=== PATIENT | male | born 1940 | race Caucasian/White ===

== ENCOUNTER → 2018-11-16 11:05 | Outpatient (CLI) | payer MEDICARE, OTHER, SELFPAY ==
--- NOTE | 2018-11-16 | DI.CT.S_ITS ---
PROCEDURE: CT ABDOMEN PELVIS WO/W CON INDICATIONS: BLADDER MASS TECHNIQUE: After the administration of oral contrast, 5 mm thick sections acquired from the diaphragms to the iliac crests. After the administration of intravenous contrast, 5 mm thick sections acquired from the diaphragms to the symphysis. 5 mm thick coronal and sagittal reformats were acquired. For radiation dose reduction, the following was used: automated exposure control, adjustment of mA and/or kV according to patient size. COMPARISON: None. FINDINGS: Image quality: Excellent. ABDOMEN: Lung bases: Lung bases are clear. Heart size is normal. Solid organs: Liver is normal in size and enhancement. Gallbladder appears normal. Biliary system is non-dilated. Pancreas enhances normally. Spleen is normal in size and enhancement. No adrenal nodules. Both kidneys are normal in size. No hydronephrosis or nephrolithiasis. Bowel and peritoneum: Stomach, small and large bowel loops are normal in caliber and wall thickness. No free fluid or air. Nodes and vessels: No retroperitoneal or mesenteric adenopathy by size criteria. Aorta and inferior vena are normal in caliber. Miscellaneous: No ventral hernias. PELVIS: Genitourinary: Bladder wall thickness is normal. 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 A definite polypoid or sessile mass within the bladder lumen is not identified but there is very slight asymmetric thickness to the left lateral bladder wall anterior to the left ureteral insertion (faintly seen on series 2 image 75 and delayed postcontrast series 3 image 185). Miscellaneous: No inguinal hernias or adenopathy. Bones: No suspicious bony lesions. No vertebral body compression fractures. IMPRESSION: 1. A definite bladder mucosal mass is not identified but as discussed above there is slight asymmetric thickening of the left lateral bladder wall anterior to the left ureteral insertion into the bladder. Please correlate clinically for whether this represents the area of concern reported to have been detected during cystoscopy. 2. A penile prosthesis is present with a anterior low left pelvic body wall positioning of the control device which impinges on the left bladder margin anteriorly, and distorts the bladder margin at that site. This does not represent an area of mucosal abnormality but if during cystoscopy extrinsic mass effect was clinically suspected this is a likely etiology and no additional external mass within the pelvis is found. 3. The urinary tract appears free of obstructive calculus. Several small arterial calcifications are present at the renal arteries. No acute disease over the abdomen or pelvis is found. Dictated by: Bj Ulloa M.D. on 11/16/2018 at 14:53 Approved by: Bj Ulloa M.D. on 11/16/2018 at 15:01
== END ==
PROVIDERS: Family Provider Internal Medicine; PCP Internal Medicine; Visit Provider Urology
DX: N32.89 Other specified disorders of bladder (principal)
CPT/HCPCS: 74178; Q9967

== ENCOUNTER → 2019-02-28 06:41 | Outpatient (CLI) | payer MEDICARE, OTHER, SELFPAY ==
--- NOTE | 2019-03-01 14:58 | PM.TREADMILL ---
Cardiac Stress Test Report Referral & Results Date Patient Seen: 03/01/19 Requesting provider: Irene Maldonado Indication: V-tach Rest ECG: Left bundle branch block pattern Procedure Note: After both written and verbal informed consent the patient had an IV started by the diagnostic imaging RN, and then was hooked up to the treadmill monitoring system. The Lexiscan material, and then the Cardiolite tracer, were administered sequentially. An additional 3 min was spent monitoring the patient while supine on the gurney. The patient had a normal response to all infused materials. Impression: Normal response to infuse materials Please see perfusion imaging report for details regarding possible ischemia This was initially scheduled as an exercise Cardiolite but given patient's abnormal baseline ECG I elected to perform this as a Lexiscan. I do not see evidence of this conduction pattern present on notes from patient's referring physician Please note: Actual ECG tracings can be found in the PACS system.
--- NOTE | 2019-03-01 18:40 | DI.NM.S_ITS ---
DATE OF SERVICE: 02/28/2019 PROCEDURE: Pharmacological perfusion study. INDICATIONS: Nonsustained ventricular tachycardia, permanent atrial fibrillation, sick sinus syndrome, underlying atrial fibrillation, hypertension. RADIOPHARMACEUTICAL: 25.2 mCi technetium-99m Myoview IV was injected at stress and 22.8 mCi technetium-99m Myoview IV was injected at rest. CARDIAC STRESS: Patient underwent IV Lexiscan perfusion study under the supervision of an attending staff. Patient received IV Lexiscan as per protocol. He remained hemodynamically stable. No significant symptoms were reported. Baseline EKG revealed ventricular paced rhythm. Stress EKG did not reveal any convincing ischemic changes. RAW DATA: There was increased subdiaphragmatic activity. GATED STUDY: Resting stress LV ejection fraction 46%. Stress LV ejection fraction 58%. No obvious wall motion abnormalities. Resting LV end-diastolic volume is 226 mL, which is abnormal suggestive of dilated LV. No transient ischemic dilatation. TID ratio is 1.00, which is within normal limits. Lung/heart ratio is 0.49, which is abnormal suggestive of either elevated LV filling pressure or left-sided valvular pathology. MYOCARDIAL PERFUSION SCAN: Stress supine and resting supine images revealed small-sized moderately decreased perfusion of distal inferior wall extending into the inferior apex as well is mildly decreased perfusion of distal anterior wall, distal anterior septum. During prone images, above-mentioned defects got significantly improved. Patient remained to have mildly decreased perfusion of distal inferior wall and inferior apex. No reversible ischemia. CONCLUSION: There is no obvious reversible ischemia. Patient has predominantly fixed small-sized mildly decreased perfusion of distal inferior wall and inferior apex. Patient has a permanent pacemaker and that defect could be due to pacemaker induced. No convincing infarction pattern. There is evidence of tissue attenuation artifact which got improved in prone images as well. Resting end-diastolic volume is 226 mL, suggested of dilated LV and lung heart ratio, 0.49 suggestive of elevated LV filling pressure, likely diastolic dysfunction. However, patient may have underlying valvular pathology on the left side as well. Consider 2-D echocardiogram for further evaluation. NikhilJohn mock - CHUCKIE/malinda/ doc#: [id number]/job#: [id number] dd: 03/01/2019 17:21:00 dt: 03/01/2019 18:27:00 DICTATING MD/COPIES TO: Karmen Billings MD COPIES MNE: WILNER
== END ==
PROVIDERS: Family Provider Internal Medicine; PCP Internal Medicine; Visit Provider Internal Medicine Cardiovascular Disease
DX: I47.2 Ventricular tachycardia (principal); I48.2 Chronic atrial fibrillation; I49.5 Sick sinus syndrome; I10 Essential (primary) hypertension; Z95.0 Presence of cardiac pacemaker
CPT/HCPCS: 78452; 93016; 93017; 93018; A9502; J2785

== ENCOUNTER → 2019-03-21 13:55 | Outpatient (CLI) | payer MEDICARE, OTHER, SELFPAY ==
--- NOTE | 2019-03-21 | DI.ECHO.S_ITS ---
[facility] +---------+ : : [address] : : : : [id number] : : : : Phone: [phone] Echocardiogram Report + + :Name: PEARL DREW Study Date: 03/21/2019 Height: 70 in : :[facility] Exam Location: [place] Weight: 251 lb : : Gender: Male BSA: 2.3 m2 : :: 1940 Age: 78 yrs BP: 130/85 mmHg: :Reason For Study: Nonsustained ventricular tachycardia : :Ordering Physician: Irene Savage : :Joel Performed By: Kimberly Page : + + Interpretation Summary 1) Upper normal left ventricular size with mildly reduced systolic function (EF 45-50%). 2) There is a dyssynchronous contraction pattern due to the paced rhythm. 3) Mildly enlarged right ventricle with mildly reduced function. There is a pacemaker lead in the right ventricle. 4) Both atria are severely dilated. 5) There is moderate aortic stenosis (valve area 1.0cm2, mean gradient 11.9mmHg, severity ratio 0.31). 6) Compared to the Echo done 10/03/2016, LVEF appears mildly reduced on today's study. Procedure: A two-dimensional transthoracic echocardiogram with color flow and Doppler was performed. The study quality was technically adequate. Comparison is made with the echocardiogram of 10/03/2016. The patient has a paced rhythm. Left Ventricle: Left ventricular size is at the upper limits of normal. The ejection fraction is estimated to be 45-50%. There is a mild dyssynchronous contraction pattern due to the paced rhythm. There is mild global hypokinesis of the left ventricle. Diastolic function could not be accurately assessed due to paced rhythm. Right Ventricle: The right ventricle is mildly dilated. There is a pacemaker lead in the right ventricle. Right ventricular systolic function is mildly reduced. Atria: Both atria are severely dilated. There is no Doppler evidence for an interatrial shunt. Mitral Valve: The mitral valve leaflets appear mildly thickened, but open well. There is mild mitral annular calcification. There is mild to moderate mitral regurgitation. Aortic Valve: The aortic valve is trileaflet. The aortic valve is mildly calcified. The peak aortic velocity is 2.3 m/sec. The peak aortic velocity on the previous exam was 2.0 m/sec. The calculated aortic valve area is 1.0 cm2. The aortic valve mean gradient is 11.9 mmHg. There is moderate aortic stenosis. There is mild aortic regurgitation. Tricuspid Valve: The tricuspid valve is normal in structure and function. There is trace tricuspid regurgitation. Pulmonic Valve: The pulmonic valve is not well visualized. There is a trace or physiologic amount of pulmonic regurgitation. Great Vessels: The aortic root is moderately dilated. The ascending aorta is moderately enlarged. The pulmonary artery is not well visualized, but is probably normal size. The IVC is dilated (diameter is greater than 2.1 cm) yet it collapses greater than 50% with a sniff. This suggests a right atrial pressure of 8 mm Hg. Pericardium/ Pleura There is no pericardial effusion. There is no pleural effusion. MMode/2D Measurements & Calculations LVIDd: 5.9 cm LVOT diam: 2.1 cm LVIDs: 3.7 cm Ao root diam: 4.8 cm FS: 36.9 % asc Aorta Diam: 4.6 cm EPSS: 0.35 cm IVSd: 1.3 cm LVPWd: 0.92 cm LV mora. diameter/BSA (cm/m^2): 2.6 LV sys. diameter/BSA (cm/m^2): 1.6 LA A2 area: 45.6 cm2 RA long axis: 8.6 cm LA A4 area: 49.7 cm2 RA area: 47.4 cm2 LA length (vol): 8.8 cm RA vol: 221.8 ml LA vol: 218.6 ml RA : 96.5 ml/m2 LA vol index: 95.1 ml/m2 IVC diam: 3.0 cm RVD1 (basal): 4.9 cm TAPSE: 1.9 cm Doppler Measurements & Calculations Ao V2 max: 226.7 cm/sec LVOT Max Maxwell: 64.3 cm/sec Ao V2 mean: 164.2 cm/sec LV V1 max P.7 mmHg Ao max P.6 mmHg LV V1 VTI: 14.5 cm Ao mean P.9 mmHg DOROTEO(I,D): 1.0 cm2 Ao V2 VTI: 47.3 cm DOROTEO(V,D): 0.96 cm2 sev ratio: 0.31 DOROTEO indexed to BSA (cm^2/m^2): 0.45 AI P1/2t: 647.0 msec AI dec slope: 199.0 cm/sec2 MV E max maxwell: 100.7 cm/sec TR max maxwell: 252.0 cm/sec MV P1/2t: 52.3 msec TR max P.4 mmHg PA V2 max: 89.0 cm/sec PA V2 mean: 56.3 cm/sec PA mean P.4 mmHg PA Accel Time: 0.07 sec MV 2t max maxwell: 100.7 cm/sec SV(LVOT): 49.3 ml MVA(2t): 4.2 cm2 Reading Physician:04:32 PM
== END ==
PROVIDERS: PCP Internal Medicine; Visit Provider Internal Medicine Cardiovascular Disease
DX: I08.0 Rheumatic disorders of both mitral and aortic valves (principal); I47.2 Ventricular tachycardia; I77.89 Other specified disorders of arteries and arterioles; Z95.0 Presence of cardiac pacemaker
CPT/HCPCS: 93306

== ENCOUNTER → 2019-09-22 11:22 | Outpatient (CLI) | payer MEDICARE, OTHER, SELFPAY ==
--- NOTE | 2019-09-22 11:29 | DI.RAD.S_ITS ---
PROCEDURE: XR LUMBAR SPINE MIN 4V INDICATIONS: Bilateral L4-5 L5-S1 facet TECHNIQUE: 5 views of the lumbar spine were acquired. COMPARISON: [facility], CT, CT ABDOMEN PELVIS WO/W CON, 11/16/2018, 11:20. [facility], CR, XR LUMBAR SPINE 2 OR 3 VIEWS, 08/10/2017, 10:16. FINDINGS: Bones: No fracture or focal osseous destruction. Multilevel degenerative endplate sclerosis and spurring. Diffuse facet arthropathy. Straightening of the normal lordotic curvature. Moderate narrowing of the L4-L5 and L5-S1 disc space. Soft tissues: Overlying bowel gas pattern is normal. No suspicious soft tissue calcifications. Scattered vascular calcifications seen in the aorta. Penile prosthesis partially visualized Oblique images: No pars defects. IMPRESSION: Lower lumbar spondylosis and facet disease. Slight interval progression since 08/10/17 at L5-S1 Dictated by: Tito Marcos M.D. on 09/22/2019 at 13:34 Approved by: Tito Marcos M.D. on 09/22/2019 at 13:38
== END ==
PROVIDERS: Family Provider Internal Medicine; PCP Internal Medicine; Visit Provider Physical Medicine & Rehabilitation
DX: M47.27 Other spondylosis with radiculopathy, lumbosacral region (principal)
CPT/HCPCS: 72110

== ENCOUNTER 2019-10-13 09:12 | Outpatient (CLI) | payer MEDICARE, OTHER, SELFPAY ==
[2019-10-13] VITALS (8 sets, daily range): BP systolic 122–171; BP diastolic 43–93; PULSE 60–62; RESP 16–60; TEMP 36.3; O2SAT 93–98
--- NOTE | 2019-10-13 09:14 | DI.RAD.S_ITS ---
PROCEDURE: PAIN L/S FACET INJ/BLK 1ST FERNANDA COMPARISON: None. INDICATIONS: SPONDYLSOIS FINDINGS: 6 intraoperative fluoroscopy images demonstrate needle placement at L4-L5 and L5-S1 facet joints bilaterally. IMPRESSION: Needle placement under fluoroscopy guidance. Dictated by: Monica Lenz M.D. on 10/13/2019 at 13:34 Approved by: Monica Lenz M.D. on 10/13/2019 at 13:35
[2019-10-13] MEDS: fentaNYL 100 MCG/2 ML INJ 50 MCG IV (10:11)
[2019-10-13] MEDS: MIDAZOLAM 5 MG/5 ML VIAL IV (10:11)
[2019-10-13] MEDS: IOPAMIDOL 15 ML VIAL 3 ML INJ (10:15)
[2019-10-13] MEDS: LIDOCAINE 1% 20 ML 10 ML INJ (10:16)
[2019-10-13] MEDS: BETAMETHASONE 30 MG/5 ML MDV 12 MG INJ (10:16)
[2019-10-13] MEDS: BUPIVACAINE 0.5% (PF) VIAL 2 ML INJ (10:16)
--- NOTE | 2019-10-13 10:20 | PC.NURSE ---
ASSISTING PT OFF TABLE AND TRANSPORTING TO POST PROC AREA IN STABLE CONDITION. PASSING RN CARE OF PT OFF TO REJI Gregory RN. VERSED AND FENTANYL PREPARED AND ADMINISTERED BY THIS RN. ALL OTHER MEDS PREPARED AND ADMINISTERED BY DR. LAKE.
--- NOTE | 2019-10-13 10:24 | P.PCN_ITS ---
Procedures Date/Time Date of procedure: 10/13/19 Time of procedure: 10:24 General Procedure description: PREOP DIAGNOSIS 1. FACET ARTHROPATHY 2. AXIAL LBP 3. MULTILEVEL DDD POST OP DIAGNOSIS 1. FACET ARTHROPATHY 2. AXIAL LBP 3. MULTILEVEL DDD PROCEDURES 1. FLUORSCOPICALLY GUIDED CONTRAST CONTROLLED FACET JOINT INJECTIONS BILATERAL L4/5, L5/S1 PHYSICIAN: Michael Trotter, DO INDICATIONS Jm is referred by Dr. Cleaning for treatment of Axial LBP FINDINGS Multilevel Facet Arthropathy with Clinically significant axial LBP DESCRIPTION OF PROCEDURE Fluoroscopically guided, contrast-controlled bilateral L4/5, L5/S1 facet joint injections. Following review of allergy and review of potential side effects and complications, including, but not necessarily limited to, infection, allergic reaction, local tissue breakdown, stroke, temporary or permanent nerve injury, paralysis, and possible , the patient indicated that the patient understood and agreed to proceed. An informed consent document was signed by the patient, witnessed by a nurse, and placed in the patient's chart. Additionally, other treatment options including medications, modalities, and physical therapy were reviewed with the patient. After review of previous anaesthesic history and IV conscious sedation the patient was deemed safe to proceed with todays procedure with IV conscious sedation as ASA class II designation. Safety time-out was performed to confirm patient ID, procedure to be performed and site of procedure. IV sedation was accomplished with a combination of 2mg of Versed and 50mcg of Fentanyl was administered by the RN after DO order, titrated to patient comfort during the course of the procedure while the patient remained responsive to all verbal commands In the prone position, following sterile prep and drape of the lumbar region, the posterior aspect of the L4/5, L5/S1 facet joints were identified fluoroscopically. The skin was anesthetized via a 25-gauge 1.5-inch needle with 1% lidocaine solution into the corresponding facet joints. At this point, a 22- gauge 3.5-inch spinal needle was atraumatically introduced and advanced under fluoroscopic guidance into the corresponding facet joints. Following negative a spiration, injections of approximately 0.2cc of Isovue 200 confirmed interarticular placement without vascular uptake. The identical procedure was then performed at the L4/5, L5/S1 facet joints on the left. Radiological data, including multiple fluoroscopic views of the lumbosacral spine, reveal a spinal needle at the L4/5, L5/S1 facet joints bilaterally. Subsequent views show flow of contrast material both superiorly and inferiorly within the joint space without vascular or intrathecal uptake. At this point, a total of 0.5cc including a mixture of 0.25cc Marcaine and 0.25cc betamethasone was injected without complication into each of the corresponding facet joints. The patient tolerated the procedure well without signs or symptoms of complications prior to transfer to the recovery area continued monitoring without incident. The patient was then transferred to the recovery area where they were observed for an appropriate period of time after the injection. The patient reported a VAS score of 7 prior to the procedure and a post- procedure VAS of 1. Total Fluoroscopy Time: 20.3 seconds Total Conscious Sedation Time: 24min POST OP INSTRUCTIONS The patient was provided a Pain Log to continue to record their response to the target-specific procedure prior to follow-up visit with their referring physician. Additionally, specific post-injection care instructions and a contact number to our office were provided if concerns arise regarding possible complications associated with the procedure are suspected. Michael Trotter DO Complications: none
--- NOTE | 2019-10-13 13:56 | PC.NURSE ---
Late entry: Discharge note- Patient arrived for post procedure monitoring. Awake but slightly drowsy. VSS, O2 Sat WNL on 2L/CRIMINAL ATTORNEY. Handoff report received from Mechelle Sanchez RN. Tolerating PO without nausea. Able to stand and ambulate with 0/10 pain level. Waited for to be finished with procedure. Discharged with to waiting room . 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
== END 2019-10-13 11:20 | disposition home or self-care (01) ==
PROVIDERS: Family Provider Internal Medicine; PCP Internal Medicine; Visit Provider Physical Medicine & Rehabilitation
DX: M47.816 Spondylosis without myelopathy or radiculopathy, lumbar region (principal); M47.817 Spondylosis without myelopathy or radiculopathy, lumbosacral region; M54.5 Low back pain; M51.36 Other intervertebral disc degeneration, lumbar region; M51.37 Other intervertebral disc degeneration, lumbosacral region
CPT/HCPCS: 64493; 64494; 99152; J0702; J2250; J3010

== ENCOUNTER → 2020-04-02 13:29 | Outpatient (CLI) | payer MEDICARE, OTHER, SELFPAY ==
--- NOTE | 2020-04-02 | DI.ECHO.S_ITS ---
[facility] + [facility] +---------+ : : [address] : : : : [place] : : : : [place], : : : : [place] [address] : : : : Phone: [phone] [facility] Echocardiogram Report + + :Name: PEARL DREW Study Date: 04/02/2020 Height: 70 in : :[facility] Weight: 249 lb : : Gender: Male BSA: 2.3 m2 : :: 1940 Age: 79 yrs BP: 140/80 mmHg: :Reason For Study: Aortic Stenosis : :Ordering Physician: Miriam Savage : :Joel Performed By: Ashanti Lucero : :Referring: MIRIAM MALDONADO : + + Interpretation Summary 1) Normal left ventricular size with mildly reduced systolic function (EF 45- 50%). 2) There is a dyssynchronous contraction pattern due to the paced rhythm. 3) Upper normal right ventricular size with mildly reduced function. There is a pacemaker lead in the right ventricle. 4) Both atria are severely dilated. 5) There is moderate aortic stenosis (valve area 1.3cm2, mean gradient 14mmHg, severity ratio 0.34). 6) The right ventricular systolic pressure is estimated to be at least 49 mmHg based on an estimated right atrial pressure of 15 mm Hg. 7) The aortic root is moderately dilated at 4.4cm. The ascending aorta is moderately enlarged at 4.2cm. 8) Compared to the Echo done 03/21/2019, pulmonary hypertension and righit sided hypervolemia are present on this study. Procedure: A two-dimensional transthoracic echocardiogram with color flow and Doppler was performed. The study quality was technically adequate. Comparison is made with the echocardiogram of 03/21/2019. The patient has a paced rhythm. Left Ventricle: The left ventricle is normal in size. There is mild concentric left ventricular hypertrophy. Left ventricular ejection fraction is estimated to be 45 +/- 5%. There is a mild dyssynchronous contraction pattern due to the paced rhythm. Diastolic function could not be accurately assessed due to paced rhythm. Right Ventricle: There is a pacemaker lead in the right ventricle. The right ventricle is at the upper limits of normal in size. Right ventricular systolic function is mildly reduced. Atria: Both atria are severely dilated. There is no Doppler evidence for an interatrial shunt. Mitral Valve: The mitral valve leaflets appear mildly thickened, but open well. There is mild mitral annular calcification. There is mild to moderate mitral regurgitation. Aortic Valve: The aortic valve is trileaflet. The aortic valve is moderately calcified. There is moderately reduced leaflet mobility. There is moderate aortic stenosis. The peak aortic velocity is 2.6 m/sec. The peak aortic velocity on the previous exam was 2.3 m/sec. The aortic valve mean gradient is 14 mmHg. There is mild aortic regurgitation. Tricuspid Valve: The tricuspid valve leaflets are thin and pliable. There is mild tricuspid regurgitation. The right ventricular systolic pressure is estimated to be at least 49 mmHg based on an estimated right atrial pressure of 15 mm Hg. Pulmonic Valve: The pulmonic valve is not well seen, but is grossly normal. There is mild pulmonic regurgitation. Great Vessels: The aortic root is moderately dilated. The ascending aorta is moderately enlarged. The IVC is dilated (diameter is greater than 2.1 cm) and it collapses less than 50% with a sniff. This suggests a high right atrial pressure of 15 mm Hg. Pericardium/ Pleura There is no pericardial effusion. There is no pleural effusion. MMode/2D Measurements & Calculations LVIDd: 5.8 cm LVOT diam: 2.2 cm LVIDs: 3.8 cm Ao root diam: 4.4 cm IVSd: 1.2 cm asc Aorta Diam: 4.2 cm LVPWd: 1.4 cm Ao Arch Diam (Prox Trans): 3.3 cm LV mora. diameter/BSA (cm/m^2): 2.5 LV sys. diameter/BSA (cm/m^2): 1.7 FS: 33.6 % LA A2 area: 42.2 cm2 RA long axis: 8.5 cm LA A4 area: 40.5 cm2 RA area: 44.2 cm2 LA length (vol): 8.9 cm RA vol: 194.8 ml LA vol: 162.9 ml RA : 85.0 ml/m2 LA vol index: 71.1 ml/m2 RVD1 (basal): 4.0 cm IVC diam: 3.2 cm TAPSE: 1.6 cm Doppler Measurements & Calculations Ao V2 max: 259.9 cm/sec LVOT Max Maxwell: 85.8 cm/sec Ao V2 mean: 176.4 cm/sec LV V1 max P.0 mmHg Ao V2 VTI: 55.0 cm LV V1 VTI: 18.6 cm Ao max P.0 mmHg Ao mean P.4 mmHg DOROTEO(I,D): 1.3 cm2 AI P1/2t: 698.5 msec DOROTEO(V,D): 1.3 cm2 AI dec slope: 169.9 cm/sec2 DOROTEO indexed to BSA (cm^2/m^2): 0.58 sev ratio: 0.34 MV E max maxwell: 118.8 cm/sec MV dec time: 0.20 sec MV A max maxwell: 38.8 cm/sec MV E/A: 3.1 Med Peak E' Maxwell: 4.4 cm/sec E/E' med: 27.3 Lat Peak E' Maxwell: 7.5 cm/sec E/E' lat: 15.8 E/e' average: 21.5 TR max maxwell: 291.3 cm/sec PA V2 max: 92.7 cm/sec TR max P.0 mmHg PA V2 mean: 56.3 cm/sec PA mean P.5 mmHg SV(LVOT): 73.5 ml Reading Physician:02:14 PM
== END ==
PROVIDERS: Family Provider Internal Medicine; PCP Internal Medicine; Referring Provider Internal Medicine Cardiovascular Disease; Visit Provider Internal Medicine Cardiovascular Disease
DX: I08.3 Combined rheumatic disorders of mitral, aortic and tricuspid valves (principal); I77.810 Thoracic aortic ectasia; Z95.0 Presence of cardiac pacemaker
CPT/HCPCS: 93306

== ENCOUNTER → 2021-02-12 15:41 | Outpatient (CLI) | payer MEDICARE, OTHER, SELFPAY ==
--- NOTE | 2021-02-12 15:44 | DI.RAD.S_ITS ---
PROCEDURE: XR LUMBAR SPINE MIN 4V INDICATIONS: Lower back pain TECHNIQUE: 5 views of the lumbar spine were acquired, including bilateral oblique views. COMPARISON: [facility], CR, XR LUMBAR SPINE MIN 4V, 09/22/2019, 11:31. FINDINGS: Bones: 5 nonrib-bearing vertebrae are present. There is normal bony alignment. No vertebral body compression fractures. No suspicious bony lesions. Multilevel degenerative disc space loss and posterior facet arthropathy. Soft tissues: Overlying bowel gas pattern is normal. No suspicious soft tissue calcifications. Diffuse atherosclerotic calcifications of the aorta and iliacs. Oblique images: No pars defects. IMPRESSION: 1. Degenerative change. 2. No evidence acute bony abnormality of the lumbar spine. If clinical suspicion and/or symptoms persist, further assessment with repeat plain films, or advanced imaging (e.g., CT, MRI, or bone scan) may be helpful for further assessment. Dictated by: Armando Baldwin M.D. on 02/12/2021 at 17:09 Approved by: Armando Baldwin M.D. on 02/12/2021 at 17:10
== END ==
PROVIDERS: Family Provider Internal Medicine; PCP Internal Medicine; Referring Provider Physical Medicine & Rehabilitation; Visit Provider Physical Medicine & Rehabilitation
DX: M47.27 Other spondylosis with radiculopathy, lumbosacral region (principal)
CPT/HCPCS: 72110

== ENCOUNTER → 2021-02-26 08:48 | Outpatient (CLI) | payer MEDICARE, OTHER, SELFPAY ==
[2021-02-26 15:00] LABS: COVID19 -Nasal RAPID Negative (Negative)
== END ==
PROVIDERS: Family Provider Internal Medicine; PCP Internal Medicine; Visit Provider Physical Medicine & Rehabilitation
DX: Z20.822 Contact with and (suspected) exposure to COVID-19 (principal)
CPT/HCPCS: 87635; C9803

== ENCOUNTER 2021-02-28 14:43 | Outpatient (CLI) | payer MEDICARE, OTHER, SELFPAY ==
[2021-02-28] VITALS (8 sets, daily range): BP systolic 145–205; BP diastolic 69–98; PULSE 59–64; RESP 14–20; TEMP 36.1; O2SAT 92–96
--- NOTE | 2021-02-28 14:45 | DI.RAD.S_ITS ---
PROCEDURE: PAIN L/S FACET INJ/BLK 1ST FERNANDA COMPARISON: [facility], , PAIN L/S FACET INJ/BLK 1ST FERNANDA, 10/13/2019, 10:11. INDICATIONS: SPONDYLOSIS FINDINGS: Fluoroscopic spot filming was performed to verify placement of spinal needles on both sides at the L4, L5, and S1 levels, as labeled on the films. Appropriate location of the needle tip was confirmed by injection of iodinated contrast. IMPRESSION: Intraprocedural examination within normal limits. Dictated by: Arun Ag M.D. on 02/28/2021 at 16:03 Approved by: Arun Ag M.D. on 02/28/2021 at 16:03
[2021-02-28] MEDS: MIDAZOLAM 5 MG/5 ML VIAL IV (15:52)
[2021-02-28] MEDS: fentaNYL 100 MCG/2 ML INJ 50 MCG IV (15:52)
[2021-02-28] MEDS: LIDOCAINE 1% 20 ML 10 ML INJ (16:00)
[2021-02-28] MEDS: BUPIVACAINE 0.5% (PF) VIAL 5 ML INJ (16:00)
[2021-02-28] MEDS: IOPAMIDOL 15 ML VIAL 3 ML INJ (16:00)
--- NOTE | 2021-02-28 16:13 | PM.PROC.IR.1 ---
Date/Time/Diagnoses Date of procedure: 02/28/21 Time of procedure: 16:17 Pre-procedure diagnosis: 1. FACET ARTHROPATHY Post-procedure diagnosis: same Procedure Notes Procedure: 1. BILATERAL- L4, L5 and S1 DIAGNOSTIC MB BLOCKS with LA Anesthetic Indications: John is referred by Dr. Cleaning for treatment of Bilateral Axial LBP. Physician: Michael Trotter Total Fluoroscopy time (seconds): 13 Total sedation minutes: 13 Complications: none Procedure in detail & Post-procedure care: DESCRIPTION OF PROCEDURE Fluoroscopically guided, contrast-controlled bilateral L4, L5 and S1 medial branch blocks with 0.5cc of 0.5% Marcaine. Following review of allergy and review of potential side effects and complications, including, but not necessarily limited to, infection, allergic reaction, local tissue breakdown, nerve injury, paralysis, stroke and possible , the patient indicated that the patient understood and agreed to proceed. An informed consent document was signed by the patient, witnessed by a nurse, and placed in the patient's chart. After review of previous anaesthesic history and IV conscious sedation the patient was deemed safe to proceed with today's procedure with IV conscious sedation as ASA class II designation. Safety time-out was performed to confirm patient ID, procedure to be performed and site of procedure. IV sedation was accomplished with a combination of 3mg of Versed and 50mcg of Fentanyl was administered by the RN after DO order, titrated to patient comfort during the course of the procedure while the patient remained responsive to all verbal commands In the prone position, following sterile prep and drape of the lumbar region, the right L4, L5 and S1 anatomical location of the medial branch of the dorsal ramus was identified fluoroscopically. Subsequently an anesthetic skin wheal using 1% lidocaine solution was initiated at each of the anatomical spots. Subsequently then a 22-gauge 3.5-inch spinal needle was atraumatically introduced and advanced under fluoroscopic guidance at each of the corresponding sites at the right L4, L5 and S1 MB. After negative aspiration, 0.2cc of Isovue 200 was injected, confirming placement without vascular or intrathecal uptake. Subsequently then 0.5cc of 0.5% Marcaine solution was injected at each of the corresponding sites at the right L4, L5 and S1 medial branch locations. The identical procedure was replicated on the left. The patient tolerated the procedure well without signs or symptoms of complications prior to transfer to the recovery area continued monitoring without incident. Post-procedure, the patient was monitored initiating provocative activities to measure the amount of relief from block of the facetogenic pain. The patient reported a VAS of 7 prior to the procedure and a post-procedure VAS of 1. It has been a pleasure to assist in the diagnostic and therapeutic care of your patient. POST OP INSTRUCTIONS The patient was provided with a Pain Log to complete over the next several hours and subsequent days prior to the patient's follow up with the ordering physician. If the patient has cardiac cath lab technologist relief to the solution applied, then they may be a candidate for medial branch rhizotomy. The patient is aware, was provided, once again, with a Pain Log and will follow up with the referring physician for review and clinical correlation
--- NOTE | 2021-02-28 16:27 | PC.NURSE ---
pt rhythm not charted throughout procedure because it varied moment to momnent . Dr Chloe Trotter aware varied between af-b controlled at less than 100. accelerated ventricular , frequent PVCS ,and inverted QRS complexes
== END 2021-02-28 16:28 | disposition home or self-care (01) ==
LOC: RAD 14:44
PROVIDERS: Family Provider Internal Medicine; PCP Internal Medicine; Referring Provider Physical Medicine & Rehabilitation; Visit Provider Physical Medicine & Rehabilitation
DX: M47.817 Spondylosis without myelopathy or radiculopathy, lumbosacral region (principal); M47.816 Spondylosis without myelopathy or radiculopathy, lumbar region
CPT/HCPCS: 64493; 64494; 99152; J2250; J3010

== ENCOUNTER → 2021-05-16 12:06 | Outpatient (CLI) | payer MEDICARE, OTHER, SELFPAY | PROVIDERS: Family Provider Internal Medicine; PCP Internal Medicine; Referring Provider Physical Medicine & Rehabilitation; Visit Provider Physical Medicine & Rehabilitation | DX: G62.89 Other specified polyneuropathies (principal) | CPT/HCPCS: 95886; 95910 ==

== ENCOUNTER → 2021-11-18 13:29 | Outpatient (CLI) | payer MEDICARE, OTHER, SELFPAY ==
--- NOTE | 2021-11-18 | DI.ECHO.S_ITS ---
[facility]---------+ [facility] +---------+ : : [address] : : : : [id number] : : : : Phone: [phone]+ Echocardiogram Report + + :Name: PEARL DREW Study Date: 11/18/2021 Height: 27.5 in: :[facility] ReadingLocation: Weight: 245 lb : : Gender: Male BSA: 1.2 m2 : :: 1940 Age: 81 yrs BP: 140/80 mmHg: :Reason For Study: Aortic valve stenosis : :Ordering Physician: : :LYNN Performed By: aGbriel Lake : :Referring: MIRIAM MALDONADO : + + Interpretation Summary 1) Normal left ventricular size with mildly reduced systolic function (EF 45- 50%). 2) There is a dyssynchronous contraction pattern due to the paced rhythm. 3) Mildly-moderately enlarged right ventricle with mildly reduced function. There is a pacemaker lead in the right ventricle. 4) Both atria are severely dilated. 5) There is moderate aortic stenosis (valve area 1.1cm2, mean gradient 13mmHg, severity ratio 0.26). 6) There is mild to moderate aortic regurgitation. 7) The aortic root is mildly dilated at 4.1cm. The ascending aorta is moderately enlarged at 4.3cm. 8) Compared to the Echo done 04/02/2020, mild-moderate aortic regurgitation is present on this study. Procedure: A two-dimensional transthoracic echocardiogram with color flow and Doppler was performed. The study quality was technically adequate. Comparison is made with the echocardiogram of 04/02/2020. Aquisition of apical window technically difficult, and patient could not tolerate subcostal window. The patient has a paced rhythm. Left Ventricle: The left ventricle is borderline dilated. There is borderline asymmetric left ventricular hypertrophy. The ejection fraction is estimated to be 45-50%. There is a mild dyssynchronous contraction pattern due to the paced rhythm. Diastolic function could not be accurately assessed due to paced rhythm. Right Ventricle: There is a pacemaker lead in the right ventricle. The right ventricle is mild to moderately dilated. Right ventricular systolic function is mildly reduced. Atria: Both atria are severely dilated. There is a catheter/pacemaker lead seen in the right atrium. There is no Doppler evidence for an interatrial shunt. Mitral Valve: There is mild mitral annular calcification. There is mild mitral regurgitation. Aortic Valve: The aortic valve is trileaflet. There is moderately reduced leaflet mobility. The aortic valve is moderately calcified. There is moderate aortic stenosis. The peak aortic velocity is 2.4 m/sec. The peak aortic velocity on the previous exam was 2.6 m/sec. The aortic valve mean gradient is 13 mmHg. There is mild to moderate aortic regurgitation. Tricuspid Valve: The tricuspid valve is normal. There is mild tricuspid regurgitation. Pulmonary artery pressures cannot be estimated because of the lack of a measurable TR jet velocity but the IVC suggests a CVP of around 3 mmHg. Pulmonic Valve: The pulmonic valve leaflets are thin and pliable; valve motion is normal. There is mild pulmonic regurgitation. Great Vessels: Aortic root measures 4.2 cm previously measuring 4.4 cm. Ascending aorta measures 4.3 cm previously measuring 4.2 cm. The aortic arch is at the upper limits of normal in size. The IVC is of normal diameter and collapses greater than 50% with a sniff. This suggests a low right atrial pressure of 3 mm Hg. Pericardium/ Pleura There is no pericardial effusion. There is no pleural effusion. MMode/2D Measurements & Calculations LVIDd: 6.3 cm LVOT diam: 2.2 cm LVIDs: 3.9 cm Ao root diam: 4.1 cm FS: 38.1 % asc Aorta Diam: 4.3 cm IVSd: 1.3 cm Ao Arch Diam (Prox Trans): 3.5 cm LVPWd: 1.5 cm LV mora. diameter/BSA (cm/m^2): 5.4 LV sys. diameter/BSA (cm/m^2): 3.4 LA A2 area: 30.1 cm2 RA long axis: 8.5 cm LA A4 area: 36.6 cm2 IVC diam: 2.0 cm LA length (vol): 7.0 cm LA vol: 133.8 ml LA vol index: 115.6 ml/m2 LVLs ap4: 7.2 cm LVLd ap2: 8.1 cm LVLs ap2: 7.4 cm TAPSE_phl: 2.1 cm Doppler Measurements & Calculations Ao V2 max: 240.3 cm/sec LVOT Max Maxwell: 66.7 cm/sec Ao V2 mean: 170.5 cm/sec LV V1 max P.8 mmHg Ao max P.1 mmHg LV V1 VTI: 13.4 cm Ao mean P.6 mmHg DOROTEO(I,D): 0.99 cm2 Ao V2 VTI: 51.6 cm DOROTEO(V,D): 1.1 cm2 sev ratio: 0.26 DOROTEO indexed to BSA (cm^2/m^2): 0.85 MV E max maxwell: 114.3 cm/sec PA V2 max: 67.9 cm/sec Med Peak E' Maxwell: 7.9 cm/sec PA V2 mean: 48.3 cm/sec E/E' med: 14.4 PA mean P.0 mmHg Lat Peak E' Maxwell: 5.6 cm/sec PA pr(Accel): 45.7 mmHg E/E' lat: 20.4 E/e' average: 17.4 MV dec time: 0.14 sec SV(LVOT): 51.0 ml Reading Physician:09:25 AM
== END ==
PROVIDERS: Family Provider Internal Medicine; PCP Internal Medicine; Referring Provider Internal Medicine Cardiovascular Disease; Visit Provider Internal Medicine Cardiovascular Disease
DX: I35.0 Nonrheumatic aortic (valve) stenosis (principal); I51.7 Cardiomegaly; I35.1 Nonrheumatic aortic (valve) insufficiency; Z95.0 Presence of cardiac pacemaker
CPT/HCPCS: 93306

== ENCOUNTER → 2021-11-26 13:39 | Outpatient (CLI) | payer MEDICARE, OTHER, SELFPAY ==
[2021-11-26 15:11] LABS: COVID19 -Nasal RAPID Negative (Negative)
== END ==
PROVIDERS: Family Provider Internal Medicine; PCP Internal Medicine; Referring Provider Physical Medicine & Rehabilitation; Visit Provider Physical Medicine & Rehabilitation
DX: Z20.822 Contact with and (suspected) exposure to COVID-19 (principal)
CPT/HCPCS: 87635; C9803

== ENCOUNTER 2021-11-28 06:51 | Outpatient (CLI) | payer MEDICARE, OTHER, SELFPAY ==
[2021-11-28] VITALS (14 sets, daily range): BP systolic 115–162; BP diastolic 59–81; PULSE 60–65; RESP 13–23; TEMP 35.9; O2SAT 90–98
--- NOTE | 2021-11-28 06:52 | DI.RAD.S_ITS ---
PROCEDURE: PAIN L/S MED/LAT N RFA BILAT INDICATIONS: SPONDYLOSIS COMPARISON: [facility], , PAIN L/S FACET INJ/BLK 1ST FERNANDA, 02/28/2021, 15:54. FINDINGS: Fluoroscopic spot filming was performed to verify placement of spinal needles on both sides at the L4, L5, and S1 levels, as labeled on the films. IMPRESSION: Intraprocedural examination within normal limits. Dictated by: Arun Ag M.D. on 11/28/2021 at 8:23 Approved by: Arun Ag M.D. on 11/28/2021 at 8:23
[2021-11-28] MEDS: fentaNYL 100 MCG/2 ML INJ 50 MCG IV (08:22)
[2021-11-28] MEDS: BUPIVACAINE 0.5% (PF) VIAL 30 ML (08:31)
[2021-11-28] MEDS: LIDOCAINE 1% (PF) 5 ML INJ (08:31)
[2021-11-28] MEDS: MIDAZOLAM 5 MG/5 ML VIAL IV (08:50)
--- NOTE | 2021-11-28 09:08 | P.PCN_ITS ---
Date/Time/Diagnoses Date of procedure: 11/28/21 Time of procedure: 09:08 Pre-procedure diagnosis: 1. RECALCITRANT FACET ARTHROPATHY This procedure is found to meet the Governor's proclamation 20-24.2 regarding non urgent procedures. This patient meets multiple criteria for the procedure including continuing or worsening of significant or severe pain, combined with further deterioration of the patient's condition or overall health as well as delay in treatment would be expected to result in less positive ultimate medical outcome. Therefore the decision to perform the procedure in an outpatient hospital setting is found to be in accordance with guidelines of the proclamation. Post-procedure diagnosis: same Procedure Notes Procedure: 1. BILATERAL L4 AND L5 MEDIAL BRANCH RADIOFREQUENCY NEUROTOMY AND S1 DORSAL RAMUS BRANCH RADIOFREQUENCY NEUROTOMY Indications: John Burnette is referred by Dr. Cleaning for treatment of facet arthropathy. Physician: Michael Trotter Total Fluoroscopy time (seconds): 18 Total sedation minutes: 40 Complications: none Procedure in detail & Post-procedure care: DESCRIPTION OF PROCEDURE Bilateral L4 and L5 medial branch radiofrequency neurotomy and bilateral S1 dorsal ramus radiofrequency neurotomy under fluoroscopy with conscious sedation. The patient is well known to this clinic having undergone previous facet injections with good but temporary relief. The patient has experienced appropriate, concordant relief with previous facet and median branch blocks but the patient's pain has been recalcitrant to further conservative measures. Therefore, based upon the patient's relief and persistent symptoms, the patient is considered an appropriate candidate for facet rhizotomy. All of the patient's questions regarding the risks versus benefits of the procedure, including, but not limited to, bleeding, infection, temporary as well as lasting nerve injury, paralysis, stroke, and , as well treatment alternatives were answered to satisfaction. After obtaining informed consent, denial of pertinent drug allergies, as well as being made aware of the potential risks of bleeding, infection, spinal cord trauma, paralysis, temporary and permanent nerve damage, seizure, stroke, and possible , the patient was brought to the fluoroscopy suite and positioned prone on the fluoroscopy table. The lumbar region was prepped with Betadine and covered with a fenestrated drape in the usual sterile fashion. Appropriate monitors applied including pulse oximeter, pulse, and blood pressure for regular monitoring throughout the procedure. After review of previous anaesthesic history and IV conscious sedation the patient was deemed safe to proceed with today's procedure with IV conscious sedation as ASA class II designation. Safety time-out was performed to confirm patient ID, procedure to be performed and site of procedure. IV sedation was accomplished with a combination of 4mg of Versed and 50mcg of Fentanyl administered by the RN after DO order, titrated to patient comfort during the course of the procedure while the patient remained responsive to all verbal commands. After local infiltration using 1% lidocaine, under fluoroscopic guidance, a 10- cm RF insulated needle with a 10-mm active tip was positioned parallel to the junction of the right sacral ala and the superior articulating process where the S1 dorsal ramus resides. Needle placement was confirmed with motor stimulation of .5v on the right which produced local stimulation without radicular component. The stimulation was then increased to 2v with, once again, only local multifidus stimulation without radicular component. The needle was then removed and the identical procedure was performed along the length of the right L5 medial branch with motor stimulation at .7v on the right. The identical procedure was once again performed along the length of the right L4 medial branch with motor stimulation of .5v on the right. The medial branches were then anesthetised with 0.5% Marcaine. This was then followed by two discreet lesions performed at 80 degrees Celsius for 90 seconds each. The identical procedure was repeated on the left. The patient tolerated the procedure well without signs or symptoms of complications prior to transfer to the recovery area continued monitoring without incident. The patient was then transferred to the recovery area where they were observed for an appropriate period of time after the injection. The patient reported a VAS score of 9 prior to the procedure and a post-procedure VAS of 0. POST OP INSTRUCTIONS The patient was provided a Pain Log to continue to record the patient's response to the target-specific procedure prior to the patient's follow-up visit with the referring physician. Additionally, specific post-injection care instructions and a contact number to our office were provided if concerns arise regarding possible complications associated with the procedure are suspected.
== END 2021-11-28 09:33 | disposition home or self-care (01) ==
PROVIDERS: Family Provider Internal Medicine; PCP Internal Medicine; Referring Provider Physical Medicine & Rehabilitation; Visit Provider Physical Medicine & Rehabilitation
DX: M47.817 Spondylosis without myelopathy or radiculopathy, lumbosacral region (principal); M47.816 Spondylosis without myelopathy or radiculopathy, lumbar region
CPT/HCPCS: 64635; 64636; 99152; 99153; J2250; J3010

== ENCOUNTER → 2021-12-17 12:27 | Outpatient (CLI) | payer MEDICARE, OTHER, SELFPAY ==
--- NOTE | 2021-12-17 | DI.RAD.S_ITS ---
PROCEDURE: FL BARIUM SWALLOW W AIR COMPARISON: None. INDICATIONS: Dysphagia, unspecified FINDINGS: Esophageal mucosa is normal on air-contrast views. Minimal tertiary contraction waves noted in the distal esophagus compatible with mild esophageal dysmotility. Small hiatal hernia noted. Mild gastroesophageal reflux noted during the study which occurred without provocative maneuvers. There is a stricture of the esophagus at the gastroesophageal junction which impedes passage of 13 millimeter barium tablet. IMPRESSION: 1. 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 Recommend endoscopy evaluation to differentiate benign stricture from malignancy. 2. Mild distal esophageal dysmotility. 3. Gastroesophageal reflux. Dictated by: Laura Huitron MD, PhD on 12/17/2021 at 14:03 Approved by: Laura Huitron MD, PhD on 12/17/2021 at 14:12
== END ==
PROVIDERS: Family Provider Internal Medicine; PCP Internal Medicine; Referring Provider Internal Medicine; Visit Provider Internal Medicine
DX: K22.4 Dyskinesia of esophagus (principal); K22.2 Esophageal obstruction; K21.9 Gastro-esophageal reflux disease without esophagitis; K44.9 Diaphragmatic hernia without obstruction or gangrene; R13.10 Dysphagia, unspecified
CPT/HCPCS: 74221

== ENCOUNTER → 2022-03-18 13:01 | Outpatient (CLI) | payer MEDICARE, OTHER, SELFPAY ==
[2022-03-18 15:09] LABS: COVID19 -Nasal RAPID Negative (Negative)
== END ==
PROVIDERS: Family Provider Internal Medicine; PCP Internal Medicine; Visit Provider Physician Assistant Medical
DX: Z20.822 Contact with and (suspected) exposure to COVID-19 (principal); Z01.812 Encounter for preprocedural laboratory examination
CPT/HCPCS: 87635; C9803

== ENCOUNTER → 2022-05-13 12:55 | Outpatient (CLI) | payer MEDICARE, OTHER, SELFPAY ==
[2022-05-13 14:07] LABS: COVID19 -Nasal RAPID Negative (Negative)
== END ==
PROVIDERS: Family Provider Internal Medicine; PCP Internal Medicine; Visit Provider Surgery
DX: Z20.822 Contact with and (suspected) exposure to COVID-19 (principal); Z01.812 Encounter for preprocedural laboratory examination
CPT/HCPCS: 87635; C9803

== ENCOUNTER 2022-05-14 12:09 | Day surgery (SDC) | payer MEDICARE, OTHER, SELFPAY ==
--- NOTE | 2022-03-18 16:32 | SUR.PREOP ---
03/18/[id number]-zyezi phone call completed. patient on Elequist. Referred to check with [facility] to see when he was to stop Elequist.Given remainder of pre op instructions and will be here at 1pm.
--- NOTE | 2022-05-14 13:18 | SUR.PREOP ---
05/14/22-1308-Dr Corea notified-no information recieved from Dr Varghese re: pacemaker/clearence.
[2022-05-14 13:19] VITALS: BP 165/82; PULSE 80; RESP 16; TEMP 36.6; O2SAT 97
[2022-05-14 13:28] VITALS: BMI 34.4
[2022-05-14] MEDS: SODIUM CHLORIDE 0.9% 1,000 ML 84 ML IV (14:03)
--- NOTE | 2022-05-14 14:26 | PM.HP.1 ---
History of Present Illness History of Present Illness Date Patient Seen: 05/14/22 Chief complaint: SDC Narrative: Dysphagia with abnormal barium swallow Patient History Medical History COPD (chronic obstructive pulmonary disease) Facet arthropathy, lumbosacral History of chronic atrial fibrillation History of smoking 10-25 pack years Lumbosacral spondylosis with radiculopathy Osteoarthritis Pacemaker Peripheral neuropathy Sleep apnea Surgical History History of bladder surgery History of hand surgery History of knee surgery History of penile implant History of thyroid surgery Status post carotid surgery Family & Social History Family History Father Emphysema of lung Mother Liver disease Cirrhosis of liver Sister Cancer Brother Heart attack Tobacco & Substance use: Smoking Status Former smoker alcohol intake current Substance Use Type marijuana Meds Home Medications and Allergies Home Medications Medication Instructions Recorded Confirmed Type acetaminophen 325 mg tablet 325 mg PO ONCE PRN Pain (Scale 09/16/19 05/14/22 History (Tylenol) Score 4-6) amlodipine 2.5 mg tablet 2.5 mg PO DAILY 09/16/19 05/14/22 History apixaban 5 mg tablet (Eliquis) 5 mg PO DAILY 09/16/19 05/14/22 History atenolol 50 mg tablet 50 mg PO BID #0 tabs 09/16/19 05/14/22 History finasteride 5 mg tablet 5 mg PO DAILY 09/16/19 05/14/22 History lysine 500 mg tablet 500 mg PO DAILY PRN Inflammation 09/16/19 05/14/22 History tamsulosin 0.4 mg capsule 0.4 mg PO DAILY 09/16/19 05/14/22 History triprolidine-pseudoephedrine 1 PO PRN Runny Nose 09/16/19 01/29/22 History [Antihistimine] albuterol 90 mcg/actuation aerosol 90 mcg inhalation PRN PRN 02/15/21 05/14/22 History inhaler Shortness Of Breath Or Wheezing cholecalciferol (vitamin D3) 50 50 mcg PO DAILY 02/15/21 05/14/22 History mcg (2,000 unit) capsule atorvastatin 40 mg tablet 40 mg PO DAILY 04/24/21 01/29/22 History colchicine 0.6 mg tablet mg PO DAILY PRN gout 04/24/21 01/29/22 History furosemide 40 mg tablet 40 mg PO DAILY 04/24/21 05/14/22 History nortriptyline 25 mg capsule 25 mg PO BEDTIME #60 caps 11/11/21 05/14/22 Rx allopurinol 100 mg tablet 100 mg PO DAILY 11/28/21 05/14/22 History lisinopril 20 mg tablet 20 mg PO DAILY 11/28/21 05/14/22 History Allergies Allergy/AdvReac Type Severity Reaction Status Date / Time No Known Drug Allergies Allergy Verified 05/14/22 13:21 Exam Vital Signs (past 8 hours): - 05/14/22 13:19 Temperature 97.9 F Pulse Rate 80 Respiratory Rate 16 Blood Pressure 165/82 H Pulse Oximetry 97 Oxygen Delivery Method Room Air Oxygen Delivery Method Room Air Narrative Exam Narrative: Oropharynx free of lesions Chest clear to auscultation percussion Cardiac exam reveals no S3 or murmur Assessment & Plan Assessment & Plan narrative: Dysphagia and abnormal barium swallow need for upper endoscopy to define lesion and potentially biopsy and dilate. Risks, benefits, alternatives have been explained.. Time Spent With Patient Critical Care time: I spent a total of [] minutes of critical care time on this patient's care today; this time is exclusive of procedural time.
--- NOTE | 2022-05-14 14:27 | P.OP.EGD_ITS ---
Operative Date/Time/Diagnoses Date of procedure: 05/14/22 Pre-op diagnosis: See indication and findings Procedure & Clinicians Study performed: EGD Indications: Dysphagia Surgeon: Margarita Corea Procedure Notes Procedure in detail: After informed consent was obtained the patient was placed in left lateral decubitus position. The video upper scope was placed into the oropharynx and with the patient's help swallowed into the esophagus. The esophagus stomach and duodenum were carefully examined. On withdrawal, retroflexed view the GE junction was performed. The scope was removed. The patient tolerated procedure well. Blood loss none Complications none Sedation mac Findings 1. Upper esophagus full of minimal secretion but significant bubbles. This extended down to approximately 30 cm. 2. At 30 cm there seemed to be mild extrinsic compression without virtually any mucosal abnormalities. 3. Distal to this area the esophagus appeared normal. 4. GE junction had a mild wide open Schatzki's ring. Still given the constellation of symptoms a 52 [place] Savary was passed without any resistance. 5. Retroflexed view the GE junction was unremarkable 6. Stomach otherwise normal 7. Normal duodenal bulb and sweep I will review his upper GI can and merely CRE does status post this dilation. The midesophagus correlates with where he appreciates his symptoms. He may need a CT of the chest and/or endoscopic ultrasound. Further recommendations will follow.
[2022-05-14 15:33] VITALS: BP 155/75; PULSE 60; RESP 14; TEMP 36.9; O2SAT 94
[2022-05-14 15:38] VITALS: BP 155/76; PULSE 60; RESP 14; O2SAT 95
[2022-05-14 15:43] VITALS: BP 148/60; PULSE 61; RESP 16; O2SAT 96
[2022-05-14 15:56] VITALS: BP 152/72; PULSE 60; RESP 16; O2SAT 96
== END 2022-05-14 16:05 | disposition home or self-care (01) ==
PROVIDERS: Family Provider Internal Medicine; PCP Internal Medicine; Referring Provider Internal Medicine Gastroenterology; Visit Provider Internal Medicine Gastroenterology
PROC: 0DJ08ZZ Inspection of Upper Intestinal Tract, Via Natural or Artificial Opening Endoscopic (ICD-10-PCS; CPT 43235; principal; 2022-05-14 15:00)
DX: K22.2 Esophageal obstruction (principal); R13.10 Dysphagia, unspecified; J44.9 Chronic obstructive pulmonary disease, unspecified; I48.20 Chronic atrial fibrillation, unspecified; I10 Essential (primary) hypertension; G62.9 Polyneuropathy, unspecified; G47.33 Obstructive sleep apnea (adult) (pediatric); I25.2 Old myocardial infarction; Z79.01 Long term (current) use of anticoagulants; Z95.0 Presence of cardiac pacemaker; Z86.73 Personal history of transient ischemic attack (TIA), and cerebral infarction without residual deficits
CPT/HCPCS: 43235; 43450; J2704; J3010

== ENCOUNTER → 2022-10-23 14:27 | Outpatient (CLI) | payer MEDICARE, OTHER, SELFPAY ==
--- NOTE | 2022-10-23 14:28 | DI.ECHO.S_ITS ---
[facility] +---------+ : : [address] : [address] : : : : [phone] : : : : Phone: [phone]---------+ Echocardiogram Report + + :Name: PEARL DREW Study Date: 10/23/2022 Height: 70 in : :[facility] ReadingLocation: Weight: 245 lb : : Gender: Male BSA: 2.3 m2 : :: 1940 Age: 82 yrs BP: 132/76 mmHg: :Reason For Study: Nonrheumatic Aortic Stenosis : :Ordering Physician: Miriam : :Hussein Maldonado Performed By: Ashanti Lazaro : :Referring: MIRIAM MALDONADO : + + Interpretation Summary 1) Mildly enlarged left ventrcle with mildly to moderately reduced systolic function (EF 40-45%). 2) Mildly enlarged right ventricle with mildly reduced function. 3) Severe biatrial enlargement present. 4) Moderate to severe aortic stenosis (valve area 1cm2, mean gradient 13mmHg, severity ratio 0.27). 5) There is moderate aortic regurgitation. 6) There is mild to moderate mitral regurgitation. 7) There is mild to moderate tricuspid regurgitation. 8) The right ventricular systolic pressure is estimated to be at least 52 mmHg based on an estimated right atrial pressure of 15 mm Hg. 9) The ascending aorta is mildly to moderately enlarged at 4.4cm. 10) Compared to the Echo done 11/18/2021, right sided hypervolemia is present on this study. Procedure: A two-dimensional transthoracic echocardiogram with color flow and Doppler was performed. The study quality was technically difficult. The patient has a paced rhythm. Left Ventricle: The left ventricle is mildly dilated. There is mild-moderate concentric left ventricular hypertrophy. The ejection fraction is estimated to be 40-45%. There is a significant dyssynchronous contraction pattern due to the paced rhythm. Diastolic function could not be accurately assessed due to paced rhythm. Right Ventricle: The right ventricle is mildly dilated. There is a pacemaker lead in the right ventricle. Right ventricular systolic function is mildly reduced. Atria: The left atrium is severely dilated. The right atrium is severely dilated. There is no Doppler evidence for an interatrial shunt. Mitral Valve: The mitral valve leaflets are mildly calcified. There is mild to moderate mitral regurgitation. Aortic Valve: The aortic valve is heavily calcified. The aortic valve is trileaflet. There is moderate to severe aortic stenosis. There is moderate aortic regurgitation. Tricuspid Valve: The tricuspid valve is normal in structure and function. There is mild to moderate tricuspid regurgitation. The right ventricular systolic pressure is estimated to be at least 52 mmHg based on an estimated right atrial pressure of 15 mm Hg. Pulmonic Valve: The pulmonic valve leaflets are thin and pliable; valve motion is normal. There is mild pulmonic regurgitation. Great Vessels: The aortic root is mildly dilated. The ascending aorta is mild-moderately enlarged. The IVC is dilated (diameter is greater than 2.1 cm) and it collapses less than 50% with a sniff. This suggests a high right atrial pressure of 15 mm Hg. Pericardium/ Pleura There is an anterior echo-free space consistent with a fat pad. There is no pericardial effusion. There is no pleural effusion. MMode/2D Measurements & Calculations LVIDd: 6.1 cm LVOT diam: 2.1 cm LVIDs: 4.9 cm Ao root diam: 4.5 cm FS: 18.9 % asc Aorta Diam: 4.4 cm EPSS: 0.63 cm IVSd: 1.4 cm LVPWd: 1.3 cm LV mora. diameter/BSA (cm/m^2): 2.7 LV sys. diameter/BSA (cm/m^2): 2.2 LA A2 area: 53.1 cm2 RA long axis: 8.6 cm LA A4 area: 44.4 cm2 RA area: 43.0 cm2 LA length (vol): 8.6 cm RA vol: 182.5 ml LA vol: 232.5 ml RA : 80.2 ml/m2 LA vol index: 102.2 ml/m2 TAPSE: 1.5 cm Doppler Measurements & Calculations Ao V2 max: 233.4 cm/sec LVOT Max Maxwell: 65.4 cm/sec Ao V2 mean: 169.8 cm/sec LV V1 max P.7 mmHg Ao max P.8 mmHg LV V1 VTI: 15.1 cm Ao mean P.7 mmHg DOROTEO(I,D): 0.94 cm2 Ao V2 VTI: 56.1 cm DOROTEO(V,D): 0.98 cm2 sev ratio: 0.27 DOROTEO indexed to BSA (cm^2/m^2): 0.41 AI P1/2t: 515.1 msec AI dec slope: 266.1 cm/sec2 MV E max maxwell: 119.1 cm/sec TR max maxwell: 290.8 cm/sec MV A max maxwell: 0.57 cm/sec TR max P.0 mmHg MV E/A: 208.9 PA V2 max: 89.3 cm/sec Med Peak E' Maxwell: 5.5 cm/sec PA V2 mean: 67.3 cm/sec E/E' med: 21.5 PA mean P.9 mmHg Lat Peak E' Maxwell: 6.2 cm/sec E/E' lat: 19.1 E/e' average: 20.3 MV dec time: 0.18 sec MVA(VTI): 1.6 cm2 MR ERO: 0.07 cm2 MV V2 mean: 64.1 cm/sec MR PISA: 1.0 cm2 MV mean P.1 mmHg MR flow rate: 35.9 cm3/sec MV V2 VTI: 32.2 cm MR PISA radius: 0.40 cm SV(LVOT): 52.6 ml Reading Physician:04:42 PM
== END ==
PROVIDERS: Family Provider Internal Medicine; PCP Internal Medicine; Referring Provider Internal Medicine Cardiovascular Disease; Visit Provider Internal Medicine Cardiovascular Disease
DX: I08.3 Combined rheumatic disorders of mitral, aortic and tricuspid valves (principal); I77.810 Thoracic aortic ectasia; I77.89 Other specified disorders of arteries and arterioles; Z95.0 Presence of cardiac pacemaker
CPT/HCPCS: 93306

== ENCOUNTER → 2023-01-13 09:11 | Outpatient (CLI) | payer MEDICARE, OTHER, SELFPAY ==
--- NOTE | 2023-01-13 09:14 | DI.CT.S_ITS ---
PROCEDURE: CT LUMBAR SPINE WO CON INDICATIONS: Progressive spinal stenosis TECHNIQUE: Noncontrast 3 mm thick sections acquired from the T12 level to the sacrum. Sagittal and coronal reformats were constructed. For radiation dose reduction, the following was used: automated exposure control. COMPARISON: None. FINDINGS: Image quality: Excellent. Bones: There is normal bony alignment. No acute vertebral body compression fractures. No suspicious lytic or blastic bony lesions. No pars defects. Degenerative changes with intradiscal gas at multiple levels. Schmorl's nodes are present at the superior endplate of L3. T12-L1: No significant disc bulge. The foramina and central canal are patent. L1-L2: Diffuse disc bulge and disc osteophyte on the left. The right foramen is patent. The left foramen has mild stenosis. The central canal is patent. L2-L3: Diffuse disc bulge and disc osteophytes bilaterally. The bilateral foramina have mild stenosis. There is facet hypertrophy and ligamentum flavum hypertrophy which cause moderate central canal stenosis. L3-L4: Diffuse disc bulge and disc osteophytes bilaterally. The bilateral foramina have mild stenosis. There is facet hypertrophy and ligamentum flavum hypertrophy which cause moderate central canal stenosis. L4-L5: Diffuse disc bulge and disc osteophytes bilaterally. The bilateral foramina have moderate stenosis. There is facet hypertrophy and ligamentum flavum hypertrophy which cause severe central canal stenosis. L5-S1: Diffuse disc bulge and disc osteophytes bilaterally. The bilateral foramina have severe stenosis. There is facet hypertrophy and ligamentum flavum hypertrophy which cause moderate central canal stenosis. Soft tissues: No retroperitoneal masses or hematomas. The aorta has atherosclerotic calcifications. IMPRESSION: 1. Multilevel lumbar spondylosis causing foraminal and central canal stenosis as detailed above. 2. Moderate to severe stenosis at L2-3, L3-4, L4-5, and L5-S1. Dictated by: Stevo Hernandez M.D. on 01/13/2023 at 12:13 Approved by: Stevo Hernandez M.D. on 01/13/2023 at 12:19
== END ==
PROVIDERS: Family Provider Internal Medicine; PCP Internal Medicine; Referring Provider Physical Medicine & Rehabilitation; Visit Provider Physical Medicine & Rehabilitation
DX: M48.062 Spinal stenosis, lumbar region with neurogenic claudication (principal); M48.07 Spinal stenosis, lumbosacral region; M47.816 Spondylosis without myelopathy or radiculopathy, lumbar region; M47.817 Spondylosis without myelopathy or radiculopathy, lumbosacral region
CPT/HCPCS: 72131

== ENCOUNTER 2023-01-20 12:02 | Outpatient (CLI) | payer MEDICARE, OTHER, SELFPAY ==
[2023-01-20] VITALS (8 sets, daily range): BP systolic 119–169; BP diastolic 58–98; PULSE 60–76; RESP 14–22; TEMP 36.2; O2SAT 94–99
--- NOTE | 2023-01-20 12:03 | DI.RAD.S_ITS ---
PROCEDURE: PAIN L INTERLAMINAR/CAUDAL INJ INDICATIONS: SPONDYLOSIS COMPARISON: None. FINDINGS: Fluoroscopic spot filming was performed to verify placement of spinal needles at the left L4-L5 interlaminar space level(s), as labeled on the films. Appropriate location(s) of the needle tip(s) was confirmed by injection of iodinated contrast. IMPRESSION: Access needle at the left L4-L5 interlaminar space for translaminar epidural steroid injection. Dictated by: Laura Huitron MD, PhD on 01/20/2023 at 14:30 Approved by: Laura Huitron MD, PhD on 01/20/2023 at 14:30
[2023-01-20] MEDS: MIDAZOLAM 2 MG/2 ML VIAL IV (13:34)
[2023-01-20] MEDS: IOPAMIDOL 15 ML VIAL 3 ML INJ (13:38)
[2023-01-20] MEDS: BUPIVACAINE 0.25% (PF) VIAL 2 ML INJ (13:39)
[2023-01-20] MEDS: BETAMETHASONE 30 MG/5 ML MDV 6 MG INJ (13:39)
[2023-01-20] MEDS: DEXAMETHASONE 10 MG/ML VIAL 20 MG INJ (13:39)
--- NOTE | 2023-01-20 13:50 | P.PCN_ITS ---
Date/Time/Diagnoses Date of procedure: 01/20/23 Time of procedure: 13:50 Pre-procedure diagnosis: 1. HNP WITH RADICULAR FEATURES, 2. MULTILEVEL CENTRAL STENOSIS, Post-procedure diagnosis: same Procedure Notes Procedure: 1. FLUOROSCOPICALLY GUIDED CONTRAST CONTROLLED INTERLAMINAR EPIDURAL STEROID INJECTION -L4/5 Indications: John/Vasile is referred by Dr. Cleaning for treatment of Bilateral Foraminal Stenosis R>L LE symptoms. Physician: Michael Trotter Total Fluoroscopy time (seconds): 10 Total sedation minutes: 11 Complications: none Procedure in detail & Post-procedure care: FINDINGS Multilevel Central Spinal Stenosis with Nerve Root Compression DESCRIPTION OF PROCEDURE Fluoroscopically guided, contrast-controlled L4/5 translaminar epidural steroid injection. Following review of allergy and review of potential side effects and complications, including, but not necessarily limited to, infection, allergic reaction, local tissue breakdown, temporary as well as permanent nerve injury, paralysis, stroke and possible , the patient indicated that the patient understood and agreed to proceed. An informed consent document was signed by the patient, witnessed by a nurse, and placed in the patient's chart. Additionally, other treatment options including modalities, medications, and physical therapy were reviewed with the patient. After review of previous anaesthesic history and IV conscious sedation the patient was deemed safe to proceed with today?s procedure with IV conscious sedation as ASA class II designation. Safety time-out was performed to confirm p atient ID, procedure to be performed and site of procedure. IV sedation was accomplished with a combination of 2mg of Versed was administered by the RN after DO order, titrated to patient comfort during the course of the procedure while the patient remained responsive to all verbal commands In the prone position, following sterile prep and drape of the lumbar region, the L4/5 translaminar space was identified fluoroscopically. The skin was anesthetized via a 25-gauge, 1.5inch needle with 1% lidocaine solution. At this point, a 22-gauge short bevel spinal needle was atraumatically introduced and advanced under fluoroscopic guidance into the region of the L4/5 translaminar space. Depth was confirmed on lateral view. Radiological data, including multiple fluoroscopic views of the lumbar spine, reveal a spinal needle at the L4/5 translaminar space. Lateral views then show placement of the needle in the epidural space. Subsequent views show contrast material flowing superiorly and inferiorly in the epidural space. No vascular or intrathecal uptake is observed. At this point, using loss of resistance technique with saline and air, the epidural space was entered. This was confirmed following negative aspiration with injection of approximately 1.5cc of Isovue 200, showing excellent epidural flow without vascular or intrathecal uptake. At this point, 1cc of 1% lidocaine solution combined with 3cc or 20mg of dexamethasone and 6mg betamethasone was injected without incident. The patient tolerated the procedure well without signs or symptoms of complications prior to transfer to the recovery area continued monitoring without incident. The patient was then transferred to the recovery area where they were observed for an appropriate period of time after the injection. The patient reported a VAS score of 6 prior to the procedure and a post- procedure VAS of 0. POST OP INSTRUCTIONS The patient was provided a Pain Log to continue to record their response to the target-specific procedure prior to follow-up visit with their referring physician. Additionally, specific post-injection care instructions and a contact number to our office were provided if concerns arise regarding possible complications associated with the procedure are suspected.
== END 2023-01-20 14:13 | disposition home or self-care (01) ==
PROVIDERS: Family Provider Internal Medicine; PCP Internal Medicine; Referring Provider Physical Medicine & Rehabilitation; Visit Provider Physical Medicine & Rehabilitation
DX: M51.16 Intervertebral disc disorders with radiculopathy, lumbar region (principal); M48.061 Spinal stenosis, lumbar region without neurogenic claudication
CPT/HCPCS: 62323; 99152; J0702; J1100; J2250; J3490

== ENCOUNTER → 2023-12-10 08:54 | Outpatient (CLI) | payer MEDICARE, OTHER, SELFPAY ==
--- NOTE | 2023-12-10 | DI.ECHO.S_ITS ---
[facility] +---------+ : : [address] : [address] : : : : [phone] : : : : Phone: [phone]---------+ Echocardiogram Report + + :Name: PEARL DREW Study Date: 12/10/2023 Height: 70 in : :[facility] ReadingLocation: Weight: 240 lb : : Gender: Male BSA: 2.3 m2 : :: 1940 Age: 83 yrs BP: 154/86 mmHg: :Reason For Study: AORTIC STENOSIS : :Ordering Physician: AUTUMN, : :MIRIAM Performed By: Ashanti Lucero : :Referring: MIRIAM MALDONADO : + + Interpretation Summary 1) Mildly enlarged left ventrcle with mildly to moderately reduced systolic function (EF 40-45%). 2) Mildly enlarged right ventricle with mildly reduced function. There is a pacemaker lead in the right ventricle. 3) Severe biatrial enlargement present. 4) Moderate to severe aortic stenosis (valve area 0.9cm2, mean gradient 14mmHg, severity ratio 0.26). 5) There is moderate aortic regurgitation. 6) There is mild mitral regurgitation. 7) There is mild to moderate tricuspid regurgitation. 8) The right ventricular systolic pressure is estimated to be at least 42 mmHg based on an estimated right atrial pressure of 15 mm Hg. 9) The ascending aorta is mildly to moderately enlarged at 4.5cm. 10) Compared to the Echo done 10/23/2022, no significant change. Procedure: A two-dimensional transthoracic echocardiogram with color flow and Doppler was performed. The study quality was technically adequate. Comparison is made with the echocardiogram of 10/23/2022. The patient has a paced rhythm. The heart rate ranged between 60 bpm during the study. Left Ventricle: The left ventricle is normal in size. There is mild-moderate concentric left ventricular hypertrophy. The ejection fraction is estimated to be 40-45%. Diastolic function could not be accurately assessed due to paced rhythm. Right Ventricle: The right ventricle is mildly dilated. There is a pacemaker lead in the right ventricle. Right ventricular systolic function is mildly reduced. Atria: The left atrium is severely dilated. The right atrium is severely dilated. There is no Doppler evidence for an interatrial shunt. Mitral Valve: The mitral valve leaflets are mildly calcified. There is mild mitral annular calcification. There is mild mitral regurgitation. Aortic Valve: The aortic valve is trileaflet. The aortic valve is heavily calcified. The peak aortic velocity is 2.5 m/sec. The aortic valve mean gradient is 14 mmHg. The calculated aortic valve area is 0.9 cm2. There is moderate aortic regurgitation. Tricuspid Valve: The tricuspid valve leaflets are thin and pliable. There is mild to moderate tricuspid regurgitation. The right ventricular systolic pressure is estimated to be at least 42 mmHg based on an estimated right atrial pressure of 15 mm Hg. Pulmonic Valve: The pulmonic valve leaflets are thin and pliable; valve motion is normal. There is mild pulmonic regurgitation. Great Vessels: The aortic root is mildly dilated. The ascending aorta is moderately enlarged. The IVC is dilated (diameter is greater than 2.1 cm) and it collapses less than 50% with a sniff. This suggests a high right atrial pressure of 15 mm Hg. Pericardium/ Pleura There is no pericardial effusion. There is no pleural effusion. MMode/2D Measurements & Calculations LVIDd: 5.4 cm LVOT diam: 2.1 cm LVIDs: 4.2 cm Ao root diam: 4.2 cm FS: 22.5 % asc Aorta Diam: 4.5 cm IVSd: 1.5 cm Ao Arch Diam (Prox Trans): 3.9 cm LVPWd: 1.1 cm LV mora. diameter/BSA (cm/m^2): 2.4 LV sys. diameter/BSA (cm/m^2): 1.9 LA A2 area: 44.1 cm2 RA long axis: 8.6 cm LA A4 area: 46.5 cm2 RA area: 42.7 cm2 LA length (vol): 9.0 cm RA vol: 180.9 ml LA vol: 192.5 ml RA : 80.2 ml/m2 LA vol index: 85.4 ml/m2 IVC diam: 3.4 cm RVD1 (basal): 4.4 cm RVD2 (mid): 3.9 cm TAPSE: 1.4 cm Doppler Measurements & Calculations Ao V2 max: 250.5 cm/sec LVOT Max Maxwell: 62.8 cm/sec Ao V2 mean: 169.9 cm/sec LV V1 max P.6 mmHg Ao max P.1 mmHg LV V1 VTI: 13.5 cm Ao mean P.6 mmHg DOROTEO(I,D): 0.93 cm2 Ao V2 VTI: 51.9 cm DOROTEO(V,D): 0.90 cm2 sev ratio: 0.26 DOROTEO indexed to BSA (cm^2/m^2): 0.41 AI P1/2t: 652.1 msec AI dec slope: 198.9 cm/sec2 Med Peak E' Maxwell: 6.8 cm/sec TR max maxwell: 257.6 cm/sec Lat Peak E' Maxwell: 6.8 cm/sec TR max P.5 mmHg PA V2 max: 91.7 cm/sec PA V2 mean: 65.2 cm/sec PA mean P.9 mmHg PA pr(Accel): 51.6 mmHg SV(LVOT): 48.4 ml Reading Physician:02:24 PM
== END ==
LOC: ECHO 08:55
PROVIDERS: Family Provider Internal Medicine; PCP Internal Medicine; Referring Provider Internal Medicine Cardiovascular Disease; Visit Provider Internal Medicine Cardiovascular Disease
DX: I08.3 Combined rheumatic disorders of mitral, aortic and tricuspid valves (principal); I77.89 Other specified disorders of arteries and arterioles; I77.810 Thoracic aortic ectasia
CPT/HCPCS: 93306

== ENCOUNTER → 2024-04-29 13:25 | Outpatient (CLI) | payer MEDICARE, OTHER, SELFPAY ==
[2024-04-29 14:12] LABS: Hematocrit 40.2 % (41-53); Hemoglobin 13.7 g/dL (13.5-17.5); Mean Corpuscular Hemoglobin 33.7 PG (26-34); Mean Corpuscular Volume 99.1 fL (80-100); Platelet Count 132 X10^3/uL (150-400); Red Blood Cell Count 4.06 X10^6/uL (4.5-5.9); Red Cell Distribution Width 14.3 % (11.6-14.8); White Blood Cell Count 10.1 X10^3/uL (4.5-11.0)
[2024-04-29 14:43] LABS: BUN Creatinine Ratio 24.1 (6-22); Blood Urea Nitrogen 32 mg/dL (9-20); Calcium 10.2 mg/dL (8.4-10.2); Carbon Dioxide 24 mmol/L (22-32); Chloride 108 mmol/L (98-107); Estimated Glomerular Filt Rate 53 mL/min (>60); Glucose 94 mg/dL (80-110); HEMOLYSIS < 15 (0-50); Sodium 139 mmol/L (137-145)
[2024-04-29 14:45] LABS: Potassium 5.5 mmol/L (3.4-5.1)
[2024-04-29 14:48] LABS: NT-proBNP (BNP-Adult 18+) 2410 pg/mL (<450)
== END ==
PROVIDERS: Family Provider Internal Medicine; PCP Internal Medicine; Referring Provider Internal Medicine Cardiovascular Disease; Visit Provider Internal Medicine Cardiovascular Disease
DX: R06.02 Shortness of breath (principal)
CPT/HCPCS: 36415; 80048; 83880; 85027

== ENCOUNTER → 2024-08-04 10:02 | Outpatient (CLI) | payer MEDICARE, OTHER, SELFPAY ==
--- NOTE | 2024-08-04 10:04 | DI.CT.S_ITS ---
PROCEDURE: CT CHEST WO CON INDICATIONS: PULMONARY NODULE TECHNIQUE: Noncontrast 5 mm thick sections acquired from the pulmonary apices to the posterior costophrenic angles. 1 mm lung window, 5 mm thick coronal and sagittal and 7 mm axial MIP reformats were then acquired. For radiation dose reduction, the following was used: automated exposure control, adjustment of mA and/or kV according to patient size. COMPARISON: Outside Facility, CT, CT CHEST W CON, 06/02/2023, 10:24. FINDINGS: Image quality: Suboptimal due to motion artifact. Lower Neck: No enlarged lymph nodes. Thyroid: No thyroid nodules which require sonographic follow up, per consensus guidelines. Axillae: No enlarged lymph nodes. Chest Wall: Gynecomastia. Left chest wall generator with intravenous cardiac lead. Bones: Unremarkable. Lungs and Pleura: Small right and trace left pleural effusions. Micro pulmonary nodules appear similar to prior, but evaluation is limited due to motion artifact. Stable 2 centimeter ground-glass nodule in the right upper lobe (series 4, image 35). Heart: Heart size is normal. No pericardial effusion. Thoracic Vessels: The aorta and pulmonary arteries demonstrate normal size. Mediastinum and Marva: No enlarged lymph nodes. Esophagus: No wall thickening. No hiatal hernia. Upper Abdomen: Visualized upper abdomen solid organs and bowel loops appear normal. IMPRESSION: Stable 2 centimeter ground-glass nodule in the right upper lobe. Recommend yearly follow-up for a total of 5 years to ensure stability, per Fleischner society guidelines. Small right and trace left pleural effusions. Cardiomegaly. Dictated by: Marc Carrion M.D. on 08/05/2024 at 16:52 Approved by: Marc Carrion M.D. on 08/05/2024 at 16:55
--- NOTE | 2024-08-04 10:04 | DI.CT.S_ITS ---
PROCEDURE: CT ABDOMEN PELVIS W CON INDICATIONS: ABDOMINAL MASS TECHNIQUE: Oral contrast was given in this patient. After the administration of intravenous contrast, axial sections acquired from the lung bases to the pubic symphysis. Coronal and sagittal reformats were performed. For radiation dose reduction, the following was used: automated exposure control, adjustment of mA and/or kV according to patient size. COMPARISON: [facility], CT, CT IVP, 06/28/2024, 9:16. FINDINGS: Image quality: Diagnostic. Lower Chest: There is a small to moderate right-sided pleural effusion, with overlying atelectasis. There is a trace left-sided pleural effusion. AICD leads are seen. ABDOMEN: Liver: No solid mass. Gallbladder: No radiopaque gallstones or wall thickening. Biliary ducts: No biliary dilation. Pancreas: No ductal dilation. Spleen: Size is within normal limits. Adrenal Glands: No adrenal nodules. Kidneys and Ureters: No hydronephrosis. No solid mass. No complex renal cystic lesion which requires follow up. Stomach and Bowel: There is focal thickening seen involving the duodenum, as demonstrated on series 3, image 29 and on series 4, image 25. No dilated loops of small bowel are seen. Extensive distal colonic diverticulosis is seen, without findings of active diverticulitis. The more proximal colon is within normal limits. Peritoneum: In this patient with this given history, scrutiny is given to the region between the IVC and the portal vein. At this site, no masses are seen. Normal appearing veins are seen. The previously seen inflammatory change within this region is no longer seen. No abnormal intraperitoneal fluid. No free air. Ventral Wall: No significant ventral hernia. Abdominal Nodes: No retroperitoneal or mesenteric adenopathy by size criteria. Vessels: Aorta and inferior vena cava are normal in size. Atherosclerotic calcification is noted. PELVIS: Pelvic Organs: A penile implant can be seen. Bladder: No bladder wall thickening, accounting for underdistention. Pelvic Nodes: No enlarged lymph nodes. Miscellaneous: Bilateral fat containing inguinal hernias Bones: No aggressive osseous abnormality. Focal lower lumbar spine degenerative change is seen. 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 Abnormal focal thickening seen involving the duodenum. Please consider upper endoscopy for further evaluation. Bilateral pleural effusions are seen, right larger than left. Additional findings: AICD Diverticulosis, without active diverticulitis Focal lower lumbar spine degenerative change Bilateral fat containing inguinal hernias Penile implant Dictated by: Arun Ag M.D. on 08/04/2024 at 16:25 Approved by: Arun Ag M.D. on 08/04/2024 at 16:31
[2024-08-04 10:30] LABS: Estimated Glomerular Filt Rate 59 mL/min (>60)
== END ==
LOC: CT 10:03
PROVIDERS: Radiology Diagnostic Radiology; Family Provider Internal Medicine; PCP Internal Medicine; Referring Provider Internal Medicine; Visit Provider Internal Medicine
DX: J90 Pleural effusion, not elsewhere classified (principal); R91.1 Solitary pulmonary nodule; R19.02 Left upper quadrant abdominal swelling, mass and lump; K57.90 Diverticulosis of intestine, part unspecified, without perforation or abscess without bleeding; M47.816 Spondylosis without myelopathy or radiculopathy, lumbar region; K40.20 Bilateral inguinal hernia, without obstruction or gangrene, not specified as recurrent; N62 Hypertrophy of breast; Z95.810 Presence of automatic (implantable) cardiac defibrillator
CPT/HCPCS: 36415; 71250; 74177; 82565; Q9967

== ENCOUNTER → 2024-09-27 14:45 | Outpatient (CLI) | payer MEDICARE, OTHER, SELFPAY ==
--- NOTE | 2024-09-27 14:46 | DI.ECHO.S_ITS ---
[facility] : : [id number] : : [place] : : [id number] : : Phone: [phone] Echocardiogram Report + + :Name: PEARL DREW Study Date: 09/27/2024 Height: 70 in : :[facility] ReadingLocation: Weight: 227 lb : : Gender: Male BSA: 2.2 m2 : :: 1940 Age: 84 yrs BP: 136/78 mmHg: :Reason For Study: SYSTOLIC HEART FAILURE, AORTIC STENOSIS : :Ordering Physician: AUTUMN, : :MIRIAM Performed By: Ranjan Platt : :Referring: MIRIAM MALDONADO : + + Interpretation Summary 1) Mildly to moderate enlarged left ventrcle with moderately reduced systolic function (EF 35-40%). 2) Mildly enlarged right ventricle with mildly reduced function. There is a pacemaker lead in the right ventricle. 3) Severe biatrial enlargement present. 4) Moderate to severe aortic stenosis (valve area 0.9cm2, mean gradient 13mmHg, severity ratio 0.28). 5) There is moderate aortic regurgitation. 6) There is mild to moderate mitral regurgitation. 7) There is mild to moderate tricuspid regurgitation. 8) The right ventricular systolic pressure is estimated to be at least 44 mmHg based on an estimated right atrial pressure of 15 mm Hg. 9) The ascending aorta is mildly to moderately enlarged at 4.6cm. 10) Compared to the Echo done 12/10/2023, LVEF has decreased from 40-45% to 35- 40% on this study. Procedure: A two-dimensional transthoracic echocardiogram with color flow and Doppler was performed. The study quality was technically good. Comparison is made with the echocardiogram of 12/10/2023. The patient was in normal sinus rhythm during the exam. Left Ventricle: The left ventricle is mild-moderately dilated. There is normal left ventricular wall thickness. There is no ventricular septal defect visualized. The ejection fraction is estimated to be 35-40%. There is a significant dyssynchronous contraction pattern due to the paced rhythm. Diastolic function could not be accurately assessed due to paced rhythm. Right Ventricle: The right ventricle is mildly dilated. There is a pacemaker lead in the right ventricle. Right ventricular systolic function is mildly reduced. Atria: The left atrium is severely dilated. The right atrium is severely dilated. There is a catheter/pacemaker lead seen in the right atrium. There is no Doppler evidence for an interatrial shunt. Mitral Valve: The mitral valve leaflets appear mildly thickened, but open well. There is mild mitral annular calcification. There is mild to moderate mitral regurgitation. Aortic Valve: The aortic valve is trileaflet. The aortic valve is moderately calcified. There is moderate to severe aortic stenosis. The peak aortic velocity is 2.54 m/sec. The aortic valve mean gradient is 12.9 mmHg. The calculated aortic valve area is 1.0 cm2. There is moderate aortic regurgitation. Tricuspid Valve: The tricuspid valve is normal in structure but is abnormal in function. There is mild to moderate tricuspid regurgitation. The right ventricular systolic pressure is estimated to be at least 44 mmHg based on an estimated right atrial pressure of 15 mm Hg. Pulmonic Valve: The pulmonic valve is normal in structure and function. There is mild pulmonic regurgitation. Great Vessels: The aortic root is mildly dilated. The ascending aorta is moderately enlarged. The pulmonary artery is normal size. The IVC is dilated (diameter is greater than 2.1 cm) and it collapses less than 50% with a sniff. This suggests a high right atrial pressure of 15 mm Hg. Pericardium/ Pleura There is a trivial pericardial effusion noted. There is no pleural effusion. MMode/2D Measurements & Calculations LVIDd: 6.5 cm LVOT diam: 2.1 cm LVIDs: 5.4 cm Ao root diam: 4.4 cm FS: 17.1 % asc Aorta Diam: 4.6 cm EPSS: 1.2 cm IVSd: 0.96 cm LVPWd: 0.93 cm LV mora. diameter/BSA (cm/m^2): 3.0 LV sys. diameter/BSA (cm/m^2): 2.4 LA A2 area: 48.8 cm2 RA long axis: 9.4 cm LA A4 area: 54.9 cm2 RA area: 44.1 cm2 LA length (vol): 9.9 cm RA vol: 176.3 ml LA vol: 229.5 ml RA : 80.0 ml/m2 LA vol index: 104.2 ml/m2 IVC diam: 3.1 cm RVD1 (basal): 4.3 cm RVD2 (mid): 3.6 cm TAPSE: 1.4 cm Doppler Measurements & Calculations Ao V2 max: 253.7 cm/sec LVOT Max Maxwell: 74.1 cm/sec Ao V2 mean: 164.3 cm/sec LV V1 max P.2 mmHg Ao max P.7 mmHg LV V1 VTI: 16.1 cm Ao mean P.9 mmHg DOROTEO(I,D): 0.97 cm2 Ao V2 VTI: 58.2 cm DOROTEO(V,D): 1.0 cm2 sev ratio: 0.28 DOROTEO indexed to BSA (cm^2/m^2): 0.44 AI P1/2t: 450.8 msec AI dec slope: 319.4 cm/sec2 MV E max maxwell: 96.0 cm/sec TR max maxwell: 267.5 cm/sec MV A max maxwell: 24.6 cm/sec TR max P.6 mmHg MV E/A: 3.9 PA V2 max: 78.8 cm/sec Med Peak E' Maxwell: 3.0 cm/sec PA V2 mean: 54.7 cm/sec E/E' med: 32.5 PA mean P.3 mmHg Lat Peak E' Maxwell: 5.1 cm/sec PA pr(Accel): 37.9 mmHg E/E' lat: 18.7 E/e' average: 25.6 MV dec time: 0.20 sec SV(LVOT): 56.3 ml Reading Physician:05:42 PM
== END ==
LOC: ECHO 14:46
PROVIDERS: Family Provider Internal Medicine; PCP Internal Medicine; Referring Provider Internal Medicine Cardiovascular Disease; Visit Provider Internal Medicine Cardiovascular Disease
DX: I08.3 Combined rheumatic disorders of mitral, aortic and tricuspid valves (principal); I50.42 Chronic combined systolic (congestive) and diastolic (congestive) heart failure; I77.810 Thoracic aortic ectasia; I77.89 Other specified disorders of arteries and arterioles; Z95.0 Presence of cardiac pacemaker
CPT/HCPCS: 93306